=== PATIENT | female | born 1955 | race Caucasian/White ===

== ENCOUNTER → 2018-02-06 | Day surgery (SDC) | payer BC ==
[~2018-02-06] MED LIST: DEXAMETHASONE SOD PHOS INJ 4 MG/ML VIAL ONE; DITROPAN XL5 MG PO; EFFEXOR XR75 MG PO; EPHEDRINE SULFATE INJ 50 MG/10 ML SYR ONE; FENTANYL CITRATE/PF 100MCG/2 ML INJ ONE; IOPAMIDOL 610MG/1ML 300 MG/ML VIAL IV ONE; IOTHALAMATE MEGLUMINE 17.20% 250 ML BTL ONE; LEVOFLOXACIN 500MG/D5W 100ML 100 ML IV ONE; LIDOCAINE HCL 2% LOCAL INJ 5 ML SDV VIAL INJ ONE; MIDAZOLAM HCL 2 MG/2 ML VIAL ONE; ONDANSETRON HCL INJ 2 MG/ML VIAL ONE; PANTOPRAZOLE SO40 MG PO; PROPOFOL IV EMULSION 10 MG/ML 20 ML VIAL ONE; SEVOFLURANE INHAL SOLN 250 ML PEN BTL ONE
--- OUTSIDE RECORDS SUMMARY | 2018-02-06 10:31 | XMS REPORT | Continuity of Care Document ---
Author Author Rufino orlandoann Organization Interface Address Unknown Phone Unavailable Problems Problem Status Onset Date Classification Date Reported Comments Source Z12.31 - ENCNTR SCREEN MAMMOGRAM FOR MA Active 10/31/2017 ADAM Portillo CERVICAL SPONDYLOSIS, HERNIATED DISC ICD Active 03/04/2013 [facility] CERVICAL HERNIATED DISC Active 03/04/2013 [facility] DIZZY/OTHER Active 01/04/2013 [facility] HTN - Hypertension Resolved Problem 01/06/2013 [facility] HTN - Hypertension Resolved Problem 03/23/2013 [facility] CERV SPONDYL W MYELOPATH Active [facility] CERVICAL DISC DISPLACMNT Active [facility] Medications Medication Details Route Status Patient Instructions Ordering Provider Order Date Source Fioricet oral tablet 2 tab, Route: PO, Drug Form: TAB, Dosing Weight 63.636, kg, Q4H, PRN Headache, Start date: 03/21/13 10:59:00, Duration: 30 day, Stop date: 04/20/13 10:58:00([id number] 325-50-40mg) Do not exceed 4 gm/day of acetaminophen. (Same as: Esgic, Fioricet) Inactive Daniel 03/21/2013 [facility] vancomycin (SCIP) 1 gm, Route: IVPB, Drug form: INJ, ONCE, Dosing Weight 63.636, kg, Start date: 03/20/13 21:00:00, Stop date: 03/20/13 21:00:00(Same As: Vancocin) Inactive Samy 03/21/2013 [facility] Colace 100 mg oral capsule 100 mg, 1 cap, Route: PO, Drug form: CAP, BID, Dosing Weight 63.636, kg, Start date: 03/20/13 17:00:00, Duration: 30 day, Stop date: 04/19/13 9:00:00(Same as: Colace) (Do Not Crush) No Longer Active Daniel 03/20/2013 [facility] Enablex ER tab 15mg Enablex ER tab 15mg, 1 tab, Drug form: MISC, Route: PO, Daily, 03/20/13 16:00:00, Duration: 30 day, Stop date: 04/19/13 9:00:00 No Longer Active Daniel 03/20/2013 [facility] Cenestin 0.625mg tab Cenestin 0.625mg tab, 1 tab, Drug form: MISC, Route: PO, Daily, 03/20/13 16:00:00, Duration: 30 day, Stop date: 04/19/13 9:00:00 No Longer Active Daniel 03/20/2013 [facility] benzocaine-menthol topical 1 lozenge, Route: MUCOUS MEM, Drug Form: PARAM, Q2H, PRN Sore Throat, Start date: 03/20/13 14:55:00, Duration: 30 day, Stop date: 04/19/13 14:54:00Cepacol lozenges (Same As: Cepacol Lozenges) No Longer Active Daniel 03/20/2013 [facility] Ofirmev 1,000 mg, 100 mL, Route: IV, Drug form: INJ, Q6H, Dosing Weight 63.636, kg, for > or=50 kg, Start date: 03/20/13 12:00:00, Duration: 1 day, Stop date: 03/21/13 6:00:00Infuse over 15 minutes Do not e xceed 4gm/day of acetaminophen Active Daniel 03/20/2013 [facility] dexamethasone 4 mg, 1 mL, Route: IVP, Drug form: INJ, Q6H, Dosing Weight 63.636, kg, Start date: 03/20/13 12:00:00, Duration: 1 day, Stop date: 03/21/13 6:00:00Concentration: 4mg/ml Active Daniel 03/20/2013 [facility] ondansetron 4 mg, 2 mL, Route: IVP, Drug form: INJ, ONCE, Dosing Weight 63.636, kg, PRN Nausea & Vomiting, Start date: 03/20/13 11:44:00(Same as: Zofran) Inactive Vera 03/20/2013 [facility] flumazenil 0.2 mg, 2 mL, Route: IVP, Drug form: INJ, PRN, Dosing Weight 63.636, kg, PRN Benzodiazepine Reversal, Initial dose, Start date: 03/20/13 11:44:00, Duration: 1 day, Stop date: 03/21/13 11:43:00(Same as: Romazicon) Inactive [place] 03/20/2013 [facility] naloxone 0.04 mg, 0.1 mL, Route: IVP, Drug form: INJ, Q2MIN, Dosing Weight 63.636, kg, PRN Narcotic Reversal, Start date: 03/20/13 11:44:00, Duration: 8 doses or times, Stop date: Limited # of times(Same as: Narcan) [facility] labetalol 10 mg, 2 mL, Route: IVP, Drug form: INJ, Q5Min, Dosing Weight 63.636, kg, PRN Elevated BP, Start date: 03/20/13 11:44:00, Duration: 5 doses or times, Stop date: Limited # of times [facility] esmolol IV Push 10 mg, 1 mL, Route: IVP, Drug form: INJ, Q5Min, Dosing Weight 63.636, kg, PRN Other -See Comment, Start date: 03/20/13 11:44:00, Duration: 5 doses or times, Stop date: Limited # of times(Same as: Ana Laura vibloc) Inactive [place] 03/20/2013 [facility] fentanyl 25 microgram, 0.5 mL, Route: IVP, Drug form: INJ, Q5Min, Dosing Weight 63.636, kg, PRN Pain Score 4-6, Start date: 03/20/13 11:44:00, Duration: 4 doses or times, Stop date: Limited # of times(Same as: Sublimaze) Preservative free. [facility] hydromorphone 0.5 mg, 0.25 mL, Route: IVP, Drug form: INJ, Q5Min, Dosing Weight 63.636, kg, PRN Pain Score 7-10, Start date: 03/20/13 11:44:00, Duration: 4 doses or times, Stop date: Limited # of timesSame as: Dil audid Inactive Vera 03/20/2013 [facility] tramadol 50 mg oral tablet 50 mg, 1 tab, Route: PO, Drug form: TAB, Q4H, Dosing Weight 63.636, kg, PRN Pain Score 1-3, Start date: 03/20/13 10:31:00, Duration: 30 day, Stop date: 04/19/13 10:30:00Not to exceed 400mg/day. (Same As: Ultram) No Longer Active [place] 03/20/2013 [facility] normal saline 0.9% IV 1,000 mL 1,000 mL, Rate: 75 ml/hr, Infuse over: 13.3 hr, Route: IV, Dosing Weight 63.636 kg, Total Volume: 1,000, Start date: 03/20/13 10:31:00, Duration: 30 day, Stop date: 04/19/13 10:30:00 No Longer Active [place] 03/20/2013 [facility] Ambien 10 mg, 2 tab, Route: PO, Drug form: TAB, Bedtime, Dosing Weight 63.636, kg, PRN Insomnia, Start date: 03/20/13 10:31:00, Duration: 30 day, Stop date: 04/19/13 10:30:00(Same As: Ambien) No Longer Active [place] 03/20/2013 [facility] Phenergan 12.5 mg, 0.5 mL, Route: IVPB, Drug form: INJ, Q4H, Dosing Weight 63.636, kg, PRN Nausea & Vomiting, Start date: 03/20/13 10:31:00, Duration: 30 day, Stop date: 04/19/13 10:30:00Do not give IV push. (Same as: Phenergan) No Longer Active [place] 03/20/2013 [facility] morphine Sulfate 4 mg, 1 mL, Route: IVP, Drug form: INJ, Q4H, Dosing Weight 63.636, kg, PRN Pain Score 7-10, Start date: 03/20/13 10:31:00, Duration: 30 day, Stop date: 04/19/13 10:30:00(Same as:MORPhine Sulfate) No Longer Active [place] 03/20/2013 [facility] cyclobenzaprine 5 mg, 0.5 tab, Route: PO, Drug form: TAB, TID, Dosing Weight 63.636, kg, PRN Spasm, Start date: 03/20/13 10:31:00, Duration: 30 day, Stop date: 04/19/13 10:30:00(Same As: Flexeril) No Longer Active Daniel 03/20/2013 [facility] Cepacol Lozenge 1 lozenge, Route: MUCOUS MEM, Q2H, Drug form: PARAM, PRN Sore Throat, Start date: 03/20/13 10:31:00, Duration: 30 day, Stop date: 04/19/13 10:30:00 Inactive Daniel 03/20/2013 [facility] vancomycin (SCIP) 1 gm, Route: IVPB, Drug form: INJ, ONCE, Dosing Weight 63.636, kg, Start date: 03/20/13 9:44:00, Stop date: 03/20/13 9:44:00(Same As: Vancocin) Inactive Samy 03/20/2013 [facility] Effexor XR 75 mg, 1 cap, Route: PO, Drug form: ERCAP, Daily, Dosing Weight 63.636, kg, Start date: 03/20/13 9:00:00, Duration: 30 day, Stop date: 04/18/13 9:00:00Do not open, crush, or chew. (Same As: Effexor XR) No Longer Active Daniel 03/20/2013 [facility] Enablex 15 mg, Route: PO, Drug form: ERTAB, Daily, Dosing Weight 63.636, kg, Start date: 03/20/13 9:00:00, Duration: 30 day, Stop date: 04/18/13 9:00:00 Inactive Daniel 03/20/2013 [facility] conjugated estrogens 0.625 mg, 1 tab, Route: PO, Drug form: TAB, Daily, Dosing Weight 63.636, kg, Start date: 03/20/13 9:00:00, Duration: 30 day, Stop date: 04/18/13 9:00:00(Same As: Premarin) Inactive Daniel 03/20/2013 [facility] amLODipine 5 mg, 1 tab, Route: PO, Drug form: TAB, Daily, Dosing Weight 63.636, kg, Start date: 03/20/13 9:00:00, Duration: 30 day, Stop date: 04/18/13 9:00:00(Same as: Norvasc) No Longer Active Daniel 03/20/2013 [facility] vancomycin 1 gm, Route: IVPB, Drug form: INJ, PRE OP, Start date: 03/20/13 5:00:00, Duration: 1 doses or times, Stop date: 03/20/13 22:00:00(Same As: Vancocin) Inactive [place] 03/20/2013 [facility] amoxicillin 500 mg, Daily, for 5 days, 0 Refill(s)for 5 days Active 03/18/2013 [facility] amLODipine 5 mg, PO, Daily, 0 Refill(s) Active Daniel 03/18/2013 [facility] Enablex 15 mg oral tablet, extended release 15 mg=1 tab, PO, Daily, # 30 tab, 0 Refill(s) Active Daniel 03/18/2013 [facility] Effexor XR 75 mg oral capsule, extended release 75 mg=1 cap, PO, Daily, # 30 cap, 0 Refill(s) Active [place] 03/18/2013 [facility] Cenestin 0.625 mg tablet 0.625 mg=1 tab, PO, Daily, # 30 tab, 0 Refill(s) Active [place] 03/18/2013 [facility] hydrochlorothiazide-losartan 12.5 mg-50 mg oral tablet 1 tab, Route: PO, Dosing Weight 63.636, kg, Daily, Start date: 01/05/13 9:00:00, Duration: 30 day, Stop date: 02/03/13 9:00:00 PO No Longer Active [place] 01/05/2013 [facility] Cozaar 50 mg, 1 tab, Route: PO, Drug form: TAB, ONCE, Start date: 01/04/13 16:00:00, Stop date: 01/04/13 16:00:00 PO No Longer Active [place] 01/04/2013 [facility] Microzide 12.5 mg, 1 cap, Route: PO, Drug form: CAP, ONCE, Start date: 01/04/13 16:00:00, Stop date: 01/04/13 16:00:00 PO No Longer Active [place] 01/04/2013 [facility] fosfomycin 3 gm, Route: PO, ONCE, Dosing Weight 63.636, kg, Start date: 01/04/13 15:40:00, Stop date: 01/04/13 15:40:00 PO No Longer Active [place] 01/04/2013 [facility] hydrochlorothiazide-losartan 12.5 mg-50 mg oral tablet 1 tab, Route: PO, Dosing Weight 63.636, kg, ONCE, Start date: 01/04/13 15:21:00, Stop date: 01/04/13 15:21:00 PO No Longer Active [place] 01/04/2013 [facility] [place] 5/325 oral tablet 1 tab, Route: PO, Drug Form: TAB, Dosing Weight 63.636, kg, ONCE, Start date: 01/04/13 14:55:00, Stop date: 01/04/13 14:55:00 PO No Longer Active [place] 01/04/2013 [facility] NS (Bolus) IV 1,000 mL 1,000 mL, Rate: 1,000 ml/hr, Infuse over: 1 hr, Route: IV, Dosing Weight 63.636 kg, Total Volume: 1,000, Priority: STAT, Start date: 01/04/13 14:51:00, Duration: 1 doses or times, Stop date: 01/04/13 15:50:00, Bolus DoseBolus Dose IV No Longer Active [place] 01/04/2013 [facility] Allergies, Adverse Reactions, Alerts Substance Category Reaction Severity Reaction type Status Date Reported Comments Source penicillins drug allergy Allergy [facility] sulfa drugs drug allergy Allergy [facility] Cipro drug allergy Allergy [facility] Immunizations Immunization Date Given Site Status Last Updated Comments Source Results Order Name Results Value Reference Range Date Interpretation Comments Source Breast Mammo Scrn BYRON incl CAD MA Breast Mammo Scrn BYRON incl CAD MA BILATERAL DIGITAL SCREENING MAMMOGRAM WITH CAD: 11/01/2017 CLINICAL: Z12.31/Screening. Current study was evaluated with a Computer Aided Detection (CAD) system. COMPARISON:No prior exams were available for comparison. TECHNIQUE: Mammographic views were obtained using digital acquisition. Current study was also evaluated with a Computer Aided Detection (CAD) system. FINDINGS: There are scattered fibroglandular densities in both breasts. Bilateral retropectoral silicone implants are present. Implants may obscure breast parenchyma, making mammographic interpretation difficult. No significant masses, calcifications, or other findings are seen in either breast. IMPRESSION: BENIGN RECOMMENDATION:There is no mammographic evidence of malignancy. A 1 year screening mammogram is recommended.(11/02/2018) This exam was interpreted at [id number] for [facility]. Gabriela Orta M.D. Additional Observers: Tyson Mayfield hh/penrad:11/07/2017 10:18:20 [employer]codile Farmer(s): Hermelinda Chen [facility] Out[facility] Imaging Department letter sent: BI-RADS 1/2 Mammogram BI-RADS: 2 Benign 11/01/2017 - - Read by: Gabriela Orta MD PHD Dictated Date/time: 11/07/17 10:18 Electronically Signed by: Gabriela Orta MD PHD 11/07/17 10:18 FINAL REPORT [facility] BLOOD BANK RESULTS ABO/Rh O POS 03/20/2013 [facility] BLOOD BANK RESULTS Antibody Scrn Negative (03/20/2013 08:40:00) 03/20/2013 Normal [facility] CHEMISTRY eGFR 98 mL/min/1.73m2 03/18/2013 1Result Comment: The eGFR is calculated using the CKD-EPI formula. In most young, healthy individuals the eGFR will be >90 mL/min/1.73m2. The eGFR declines with age. An eGFR of 60-89 may be normal in some populations, particularly the elderly, for whom the CKD-EPI formula has not been extensively validated. Use of the eGFR is not recommended in the following populations: Individuals with unstable creatinine concentrations, including patients and those with serious co-morbid conditions. Patients with extremes in muscle mass or diet. The data above are obtained from the National Kidney Disease Education Program (NKDEP) which additionally recommends that when the eGFR is used in patients with extremes of body mass index for purposes of drug dosing, the eGFR should be multiplied by the estimated BMI. [facility] CHEMISTRY Chloride Lvl 105 meq/L 95 - 109 03/18/2013 Normal [facility] CHEMISTRY Calcium Lvl 9.4 mg/dL 8.5 - 10.5 03/18/2013 Normal [facility] CHEMISTRY CO2 28 meq/L 24 - 32 03/18/2013 Normal [facility] CHEMISTRY Sodium Lvl 141 meq/L 135 - 145 03/18/2013 Normal [facility] CHEMISTRY Potassium Lvl 4.7 meq/L 3.5 - 5.1 03/18/2013 Normal [facility] CHEMISTRY Creatinine Lvl 0.7 mg/dL 0.5 - 1.4 03/18/2013 Normal [facility] CHEMISTRY Glucose Lvl 98 mg/dL 70 - 99 03/18/2013 Normal 2Interpretive Data: Adult reference range values reflect the clinical guidelines of the [place] [employer]. [facility] CHEMISTRY BUN 16 mg/dL 7 - 22 03/18/2013 Normal [facility] CHEMISTRY AGAP 12.7 meq/L 10.0 - 20.0 03/18/2013 Normal [facility] HEMATOLOGY MCV 91.4 fL 81.0 - 99.0 03/18/2013 Normal [facility] HEMATOLOGY MCH 31.7 pg 27.0 - 31.0 03/18/2013 HI [facility] HEMATOLOGY MCHC 34.7 g/dL 32.0 - 36.0 03/18/2013 Normal [facility] HEMATOLOGY Hgb 13.2 g/dL 12.0 - 16.0 03/18/2013 Normal [facility] HEMATOLOGY RDW 13.1 % 11.5 - 14.5 03/18/2013 Normal [facility] HEMATOLOGY Platelet 269 K/CMM 133 - 450 03/18/2013 Normal [facility] HEMATOLOGY MPV 8.8 fL 7.4 - 10.4 03/18/2013 Normal [facility] HEMATOLOGY Hct 37.9 % 36.0 - 48.0 03/18/2013 Normal [facility] HEMATOLOGY WBC X 10x3 6.5 K/CMM 3.7 - 10.4 03/18/2013 Normal [facility] HEMATOLOGY RBC X 10x6 4.15 M/CMM 4.20 - 5.40 03/18/2013 LOW [facility] HEMATOLOGY PROTIME 12.0 s 12.0 - 14.7 03/18/2013 Normal [facility] HEMATOLOGY aPTT 33.3 s 22.9 - 35.8 03/18/2013 Normal 4Interpretive Data: Heparin Therapeutic Range: 57 - 92 Seconds [facility] HEMATOLOGY INR 0.89 0.85 - 1.17 03/18/2013 Normal 3Interpretive Data: RECOMMENDED RANGES FOR PROTIME INR: 2.0-3.0 for most medical and surgical thromboembolic states. 2.5-3.5 for artificial heart valves and recurrent embolism. INR SHOULD BE USED ONLY FOR PATIENTS ON STABLE ANTICOAGULANT THERAPY. [facility] HEMATOLOGY Monocytes # 0.4 K/CMM 0.0 - 0.8 03/18/2013 Normal [facility] HEMATOLOGY Eosinophils # 0.2 K/CMM 0.0 - 0.5 03/18/2013 Normal [facility] HEMATOLOGY Lymphocytes 23.7 % 20.0 - 40.0 03/18/2013 Normal [facility] HEMATOLOGY Segs 68.2 % 45.0 - 75.0 03/18/2013 Normal [facility] HEMATOLOGY Monocytes 5.4 % 2.0 - 12.0 03/18/2013 Normal [facility] HEMATOLOGY Segs-Bands # 4.4 K/CMM 1.5 - 8.1 03/18/2013 Normal [facility] HEMATOLOGY Lymphocytes # 1.5 K/CMM 1.0 - 5.5 03/18/2013 Normal [facility] HEMATOLOGY Eosinophils 2.4 % 0.0 - 4.0 03/18/2013 Normal [facility] HEMATOLOGY Basophils 0.3 % 0.0 - 1.0 03/18/2013 Normal [facility] CHEMISTRY eGFR 72 mL/min/1.73m2 01/04/2013 NA 1Result Comment: The eGFR is calculated using the CKD-EPI formula. In most young, healthy individuals the eGFR will be >90 mL/min/1.73m2. The eGFR declines with age. An eGFR of 60-89 may be normal in some populations, particularly the elderly, for whom the CKD-EPI formula has not been extensively validated. Use of the eGFR is not recommended in the following populations: Individuals with unstable creatinine concentrations, including patients and those with serious co-morbid conditions. Patients with extremes in muscle mass or diet. The data above are obtained from the National Kidney Disease Education Program (NKDEP) which additionally recommends that when the eGFR is used in patients with extremes of body mass index for purposes of drug dosing, the eGFR should be multiplied by the estimated BMI. [facility] CHEMISTRY Calcium Lvl 9.6 mg/dL 8.5 - 10.5 01/04/2013 Normal [facility] CHEMISTRY CO2 28 meq/L 24 - 32 01/04/2013 Normal [facility] CHEMISTRY Chloride Lvl 105 meq/L 95 - 109 01/04/2013 Normal [facility] CHEMISTRY Potassium Lvl 4.0 meq/L 3.5 - 5.1 01/04/2013 Normal [facility] CHEMISTRY Sodium Lvl 141 meq/L 135 - 145 01/04/2013 Normal [facility] CHEMISTRY Creatinine Lvl 0.9 mg/dL 0.5 - 1.4 01/04/2013 Normal [facility] CHEMISTRY BUN 19 mg/dL 7 - 22 01/04/2013 Normal [facility] CHEMISTRY Glucose Lvl 101 mg/dL 70 - 99 01/04/2013 [place] 2Interpretive Data: Adult reference range values reflect the clinical guidelines of the [place] [employer]. [facility] CHEMISTRY Albumin Lvl 3.9 g/dL 3.5 - 5.0 01/04/2013 Normal [facility] CHEMISTRY Total Protein 7.5 g/dL 6.4 - 8.4 01/04/2013 Normal [facility] CHEMISTRY AST 25 unit/L 0 - 37 01/04/2013 Normal [facility] CHEMISTRY Bili Total 0.3 mg/dL 0.2 - 1.3 01/04/2013 Normal [facility] CHEMISTRY Alk Phos 164 unit/L 39 - 136 01/04/2013 HI [facility] CHEMISTRY ALT 39 unit/L 0 - 65 01/04/2013 Normal [facility] CHEMISTRY AGAP 12.0 meq/L 10.0 - 20.0 01/04/2013 Normal [facility] CHEMISTRY B/C Ratio 21 6 - 25 01/04/2013 Normal [facility] CHEMISTRY A/G Ratio 1.1 0.7 - 1.6 01/04/2013 Normal [facility] CHEMISTRY Globulin 3.6 g/dL 2.0 - 4.0 01/04/2013 Normal [facility] URINALYSIS UA Bacteria Many /HPF (01/04/2013 14:50:40) None Seen 01/04/2013 Normal [facility] URINALYSIS UA WBC >100 /HPF *ABN* (01/04/2013 14:50:40) None Seen 01/04/2013 ABN [facility] URINALYSIS UA RBC 3-5 /HPF *ABN* (01/04/2013 14:50:40) 0 - 2 01/04/2013 ABN [facility] URINALYSIS UA Turbidity Cloudy *ABN* (01/04/2013 14:50:40) Clear 01/04/2013 ABN [facility] URINALYSIS UA Color Bessy *ABN* (01/04/2013 14:50:40) Yellow 01/04/2013 ABN [facility] URINALYSIS UA Spec Grav 1.015 <=1.030 01/04/2013 Normal [facility] URINALYSIS UA Protein Trace *ABN* (01/04/2013 14:50:40) Negative 01/04/2013 ABN [facility] URINALYSIS UA pH 6.0 5.0 - 8.0 01/04/2013 Normal [facility] URINALYSIS UA Nitrite Positive *ABN* (01/04/2013 14:50:40) Negative 01/04/2013 ABN [facility] URINALYSIS UA Ketones Negative *NA* (01/04/2013 14:50:40) Negative 01/04/2013 NA [facility] URINALYSIS UA Bili Negative *NA* (01/04/2013 14:50:40) Negative 01/04/2013 NA [facility] URINALYSIS UA Blood Small *ABN* (01/04/2013 14:50:40) Negative 01/04/2013 ABN [facility] URINALYSIS UA Urobilinogen 0.2 EU/dL 0.1 - 1.0 01/04/2013 Normal [facility] URINALYSIS UA Sq Epi Few /LPF (01/04/2013 14:50:40) Few 01/04/2013 Normal [facility] URINALYSIS UA Leuk Est Small *ABN* (01/04/2013 14:50:40) Negative 01/04/2013 ABN [facility] URINALYSIS UA Glucose Negative (01/04/2013 14:50:40) Negative 01/04/2013 Normal [facility] HEMATOLOGY Eosinophils # 0.1 K/CMM 0.0 - 0.5 01/04/2013 Normal [facility] HEMATOLOGY Basophils # 0.0 K/CMM 0.0 - 0.2 01/04/2013 Normal [facility] HEMATOLOGY Segs 83.8 % 45.0 - 75.0 01/04/2013 HI [facility] HEMATOLOGY Plt Morph Normal (01/04/2013 14:50:39) 01/04/2013 Normal [facility] HEMATOLOGY Eosinophils 0.7 % 0.0 - 4.0 01/04/2013 Normal [facility] HEMATOLOGY Monocytes 3.0 % 2.0 - 12.0 01/04/2013 Normal [facility] HEMATOLOGY RBC Morph Normal (01/04/2013 14:50:39) 01/04/2013 Normal [facility] HEMATOLOGY Lymphocytes 12.4 % 20.0 - 40.0 01/04/2013 LOW [facility] HEMATOLOGY Segs-Bands # 9.7 K/CMM 1.5 - 8.1 01/04/2013 HI [facility] HEMATOLOGY Monocytes # 0.3 K/CMM 0.0 - 0.8 01/04/2013 Normal [facility] HEMATOLOGY Basophils 0.1 % 0.0 - 1.0 01/04/2013 Normal [facility] HEMATOLOGY Lymphocytes # 1.4 K/CMM 1.0 - 5.5 01/04/2013 Normal [facility] HEMATOLOGY MCH 30.3 pg 27.0 - 31.0 01/04/2013 Normal [facility] HEMATOLOGY Platelet 238 K/CMM 133 - 450 01/04/2013 Normal [facility] HEMATOLOGY MPV 9.1 fL 7.4 - 10.4 01/04/2013 Normal [facility] HEMATOLOGY RDW 12.4 % 11.5 - 14.5 01/04/2013 Normal [facility] HEMATOLOGY MCHC 32.9 g/dL 32.0 - 36.0 01/04/2013 Normal [facility] HEMATOLOGY Hct 39.6 % 36.0 - 48.0 01/04/2013 Normal [facility] HEMATOLOGY MCV 91.9 fL 81.0 - 99.0 01/04/2013 Normal [facility] HEMATOLOGY Hgb 13.0 g/dL 12.0 - 16.0 01/04/2013 Normal [facility] HEMATOLOGY RBC 4.30 M/CMM 4.20 - 5.40 01/04/2013 Normal [facility] HEMATOLOGY WBC 11.5 K/CMM 3.7 - 10.4 01/04/2013 [facility] Microbiology Culture: Urine 01/04/2013 [facility] Vital Signs Vital Sign Value Date Comments Source Diastolic (mm Hg) 77 03/21/2013 [facility] Temperature Oral (F) 97.8 F 03/21/2013 [facility] Heart Rate 76 03/21/2013 [facility] Respitory Rate 18 03/21/2013 [facility] Systolic (mm Hg) 118 03/21/2013 [facility] Diastolic (mm Hg) 77 03/21/2013 [facility] Heart Rate 92 03/21/2013 [facility] Systolic (mm Hg) 134 03/21/2013 [facility] Respitory Rate 18 03/21/2013 [facility] Temperature Oral (F) 98.4 F 03/21/2013 [facility] Heart Rate 92 03/21/2013 [facility] Temperature Oral (F) 98.4 F 03/21/2013 [facility] Respitory Rate 17 03/21/2013 [facility] Diastolic (mm Hg) 80 03/21/2013 [facility] Systolic (mm Hg) 149 03/21/2013 [facility] Weight 63.636 03/20/2013 [facility] Height 165.1 cm 03/20/2013 [facility] Height 165.1 cm 03/18/2013 [facility] Weight 63.636 03/18/2013 [facility] Respitory Rate 16 01/04/2013 [facility] Temperature Oral (F) 98.0 F 01/04/2013 [facility] Heart Rate 70 01/04/2013 [facility] Systolic (mm Hg) 164 01/04/2013 [facility] Diastolic (mm Hg) 79 01/04/2013 [facility] Systolic (mm Hg) 181 01/04/2013 [facility] Heart Rate 70 01/04/2013 [facility] Respitory Rate 16 01/04/2013 [facility] Diastolic (mm Hg) 74 01/04/2013 [facility] Weight 63.636 01/04/2013 [facility] Respitory Rate 20 01/04/2013 [facility] Temperature Oral (F) 98.3 F 01/04/2013 [facility] Systolic (mm Hg) 182 01/04/2013 [facility] Heart Rate 67 01/04/2013 [facility] Diastolic (mm Hg) 78 01/04/2013 [facility] Height 165.1 cm 01/04/2013 [facility] Encounters Location Location Details Encounter Type Encounter Number Reason For Visit Attending Provider ADM Date DC Date Status Source [facility] [id number] [place]MBERLY LESLIE 01/04/2013 01/04/2013 Active [facility] Inpatient [id number] PARUL FATIMA 03/20/2013 03/21/2013 Active [facility] Procedures Procedure Code Date Perfomer Comments Source Hysterectomy [id number] 03/18/1991 [facility]
--- OUTSIDE RECORDS SUMMARY | 2018-02-06 10:32 | XMS REPORT | CCD ---
Author Author Auto Generated Organization [facility] Address Unknown Phone Unavailable Care Team Providers Care [employer] Name Role Phone Pavan Bernstein CP Allergies, Adverse Reactions, Alerts Substance Reaction Status penicillins Active sulfa drugs Active Problem List Condition Effective Dates Status HTN - Hypertension Resolved Medications Medication Instructions Start Date End Date Status [place] 5/325 oral 1 tab, Route: PO, Drug Form: TAB, 01/04/2013 01/04/2013 Completed tablet Dosing Weight 63.636, kg, ONCE, Start date: 01/04/13 14:55:00, Stop date: 01/04/13 14:55:00 Cozaar 50 mg, 1 tab, Route: PO, Drug form: 01/04/2013 01/04/2013 Canceled TAB, ONCE, Start date: 01/04/13 16:00:00, Stop date: 01/04/13 16:00:00 NS (Bolus) IV 1,000 1,000 mL, Rate: 1,000 ml/hr, Infuse 01/04/2013 01/04/2013 Completed mL over: 1 hr, Route: IV, Dosing Weight 63.636 kg, Total Volume: 1,000, Priority: STAT, Start date: 01/04/13 14:51:00, Duration: 1 doses or times, Stop date: 01/04/13 15:50:00, Bolus Dose Bolus Dose hydrochlorothiazide- 1 tab, Route: PO, Dosing Weight 01/04/2013 01/04/2013 Deleted losartan 12.5 mg-50 63.636, kg, ONCE, Start date: mg oral tablet 01/04/13 15:21:00, Stop date: 01/04/13 15:21:00 Microzide 12.5 mg, 1 cap, Route: PO, Drug 01/04/2013 01/04/2013 Canceled form: CAP, ONCE, Start date: 01/04/13 16:00:00, Stop date: 01/04/13 16:00:00 hydrochlorothiazide- 1 tab, Route: PO, Dosing Weight 01/05/2013 01/04/2013 Canceled losartan 12.5 mg-50 63.636, kg, Daily, Start date: mg oral tablet 01/05/13 9:00:00, Duration: 30 day, Stop date: 02/03/13 9:00:00 fosfomycin 3 gm, Route: PO, ONCE, Dosing 01/04/2013 01/04/2013 Completed Weight 63.636, kg, Start date: 01/04/13 15:40:00, Stop date: 01/04/13 15:40:00 Vital Signs Most recent to oldest [Reference Range]: 1 2 3 Height 165.1 cm (01/04/2013 13:18:00) Temperature Oral [96.4-99.1 DegF] 98.0 DegF (01/04/2013 16:10:00) 98.3 DegF (01/04/2013 13:18:00) Systolic Blood Pressure [90-140 mmHg] 164 mmHg *HI* (01/04/2013 16:10:00) 181 mmHg *HI* (01/04/2013 14:53:00) 182 mmHg *HI* (01/04/2013 13:18:00) Diastolic Blood Pressure [60-90 mmHg] 79 mmHg (01/04/2013 16:10:00) 74 mmHg (01/04/2013 14:53:00) 78 mmHg (01/04/2013 13:18:00) Respiratory Rate [14-20 BRMIN] 16 BRMIN (01/04/2013 16:10:00) 16 BRMIN (01/04/2013 14:53:00) 20 BRMIN (01/04/2013 13:18:00) Peripheral Pulse Rate [60-100 bpm] 70 bpm (01/04/2013 16:10:00) 70 bpm (01/04/2013 14:53:00) 67 bpm (01/04/2013 13:18:00) Weight 63.636 kg (01/04/2013 13:18:00) Results URINALYSIS Most recent to oldest [Reference Range]: 1 UA Turbidity [Clear] Cloudy *ABN* (01/04/2013 14:50:40) UA Color [Yellow] Bessy *ABN* (01/04/2013 14:50:40) UA pH [5.0-8.0] 6.0 (01/04/2013 14:50:40) UA Spec Grav [<=1.030] 1.015 (01/04/2013 14:50:40) UA Glucose [Negative] Negative (01/04/2013 14:50:40) UA Blood [Negative] Small *ABN* (01/04/2013 14:50:40) UA Ketones [Negative] Negative *NA* (01/04/2013 14:50:40) UA Protein [Negative] Trace *ABN* (01/04/2013 14:50:40) UA Urobilinogen [0.1-1.0 EU/dL] 0.2 EU/dL (01/04/2013 14:50:40) UA Bili [Negative] Negative *NA* (01/04/2013 14:50:40) UA Leuk Est [Negative] Small *ABN* (01/04/2013 14:50:40) UA Nitrite [Negative] Positive *ABN* (01/04/2013 14:50:40) UA WBC [None Seen /HPF] >100 /HPF *ABN* (01/04/2013 14:50:40) UA RBC [0-2 /HPF] 3-5 /HPF *ABN* (01/04/2013 14:50:40) UA Bacteria [None Seen /HPF] Many /HPF (01/04/2013 14:50:40) UA Sq Epi [Few /LPF] Few /LPF (01/04/2013 14:50:40) CHEMISTRY Most recent to oldest [Reference Range]: 1 Sodium Lvl [135-145 mEq/L] 141 mEq/L (01/04/2013 14:50:44) Potassium Lvl [3.5-5.1 mEq/L] 4.0 mEq/L (01/04/2013 14:50:44) Chloride Lvl [95-109 mEq/L] 105 mEq/L (01/04/2013 14:50:44) CO2 [24-32 mEq/L] 28 mEq/L (01/04/2013 14:50:44) AGAP [10.0-20.0 mEq/L] 12.0 mEq/L (01/04/2013 14:50:44) Creatinine Lvl [0.5-1.4 mg/dL] 0.9 mg/dL (01/04/2013 14:50:44) eGFR 72 mL/min/1.73m2 1 *NA* (01/04/2013 14:50:44) BUN [7-22 mg/dL] 19 mg/dL (01/04/2013 14:50:44) B/C Ratio [6-25] 21 (01/04/2013 14:50:44) Glucose Lvl [70-99 mg/dL] 101 mg/dL 2 *HI* (01/04/2013 14:50:44) Total Protein [6.4-8.4 g/dL] 7.5 g/dL (01/04/2013 14:50:44) Albumin Lvl [3.5-5.0 g/dL] 3.9 g/dL (01/04/2013 14:50:44) Globulin [2.0-4.0 g/dL] 3.6 g/dL (01/04/2013 14:50:44) A/G Ratio [0.7-1.6] 1.1 (01/04/2013 14:50:44) Calcium Lvl [8.5-10.5 mg/dL] 9.6 mg/dL (01/04/2013 14:50:44) ALT [0-65 unit/L] 39 unit/L (01/04/2013 14:50:44) AST [0-37 unit/L] 25 unit/L (01/04/2013 14:50:44) Alk Phos [39-136 unit/L] 164 unit/L *HI* (01/04/2013 14:50:44) Bili Total [0.2-1.3 mg/dL] 0.3 mg/dL (01/04/2013 14:50:44) 1Result Comment: The eGFR is calculated using [...] from the National Kidney Disease Education Program ( NKDEP) which additionally recommends that when the eGFR is used in patients with extremes of body mass index for purposes of drug dosing, the eGFR should be mul tiplied by the estimated BMI. 2Interpretive Data: Adult reference range values reflect the clinical guidelines of the [place] [employer]. HEMATOLOGY Most recent to oldest [Reference Range]: 1 WBC [3.7-10.4 K/CMM] 11.5 K/CMM *HI* (01/04/2013 14:50:39) RBC [4.20-5.40 M/CMM] 4.30 M/CMM (01/04/2013 14:50:39) Hgb [12.0-16.0 g/dL] 13.0 g/dL (01/04/2013 14:50:39) Hct [36.0-48.0 %] 39.6 % (01/04/2013 14:50:39) MCV [81.0-99.0 fL] 91.9 fL (01/04/2013 14:50:39) MCH [27.0-31.0 pg] 30.3 pg (01/04/2013 14:50:39) MCHC [32.0-36.0 g/dL] 32.9 g/dL (01/04/2013 14:50:39) RDW [11.5-14.5 %] 12.4 % (01/04/2013 14:50:39) Platelet [133-450 K/CMM] 238 K/CMM (01/04/2013 14:50:39) MPV [7.4-10.4 fL] 9.1 fL (01/04/2013 14:50:39) Segs [45.0-75.0 %] 83.8 % *HI* (01/04/2013 14:50:39) Lymphocytes [20.0-40.0 %] 12.4 % *LOW* (01/04/2013 14:50:39) Monocytes [2.0-12.0 %] 3.0 % (01/04/2013 14:50:39) Eosinophils [0.0-4.0 %] 0.7 % (01/04/2013 14:50:39) Basophils [0.0-1.0 %] 0.1 % (01/04/2013 14:50:39) Segs-Bands # [1.5-8.1 K/CMM] 9.7 K/CMM *HI* (01/04/2013 14:50:39) Lymphocytes # [1.0-5.5 K/CMM] 1.4 K/CMM (01/04/2013 14:50:39) Monocytes # [0.0-0.8 K/CMM] 0.3 K/CMM (01/04/2013 14:50:39) Eosinophils # [0.0-0.5 K/CMM] 0.1 K/CMM (01/04/2013 14:50:39) Basophils # [0.0-0.2 K/CMM] 0.0 K/CMM (01/04/2013 14:50:39) RBC Morph Normal (01/04/2013 14:50:39) Plt Morph Normal (01/04/2013 14:50:39) Microbiology Reports PROCEDURE:Culture: Urine STATUS: Auth (Verified) BODY SITE: COLLECTED DATE/TIME: 01/04/2013 14:50:23 SOURCE: Urine, Clean Catch FREE TEXT SOURCE: FINAL REPORTS Final Report >100,000 CFU/mL Escherichia coli SUSCEPTIBILITY REPORT EC Antibiotic INTERP. VDIL Amikacin S Ampicillin R Ampicillin/Sulbactam S Cefazolin S Cefepime S Ceftriaxone S Cefuroxime S ESBL Confirmation - Gentamicin S Levofloxacin S Meropenem S Nitrofurantoin S Piperacillin/Tazobactam S Tetracycline S Tobramycin S Trimethoprim/Sulfamethoxazole S
--- OUTSIDE RECORDS SUMMARY | 2018-02-06 10:32 | XMS REPORT | CCD ---
Author Author Auto Generated Organization [facility] Address Unknown Phone Unavailable Care Team Providers Care [employer] Name Role Phone Antolin Mccollum RP Allergies, Adverse Reactions, Alerts Substance Reaction Status Cipro Active penicillins Active sulfa drugs Active Problem List Condition Effective Dates Status HTN - Hypertension Resolved Medications Medication Instructions Start Date End Date Status Fioricet oral tablet 2 tab, Route: PO, Drug Form: TAB, 03/21/2013 03/21/2013 Discontinued Dosing Weight 63.636, kg, Q4H, PRN Headache, Start date: 03/21/13 10:59:00, Duration: 30 day, Stop date: 04/20/13 10:58:00([id number] affeine 325-50-40mg) Do not exceed 4 gm/day of acetaminophen. (Same as: Esgic, Fioricet) Fioricet oral tablet 1 tab, Route: PO, Drug Form: TAB, 03/21/2013 03/21/2013 Discontinued Dosing Weight 63.636, kg, Q4H, PRN Headache, Start date: 03/21/13 10:59:00, Duration: 30 day, Stop date: 04/20/13 10:58:00 tramadol 50 mg oral 50 mg, 1 tab, Route: PO, Drug form: 03/20/2013 03/21/2013 Discontinued tablet TAB, Q4H, Dosing Weight 63.636, kg, PRN Pain Score 1-3, Start date: 03/20/13 10:31:00, Duration: 30 day, Stop date: 04/19/13 10:30:00Not to exceed 400mg/day. (Same As: Ultram) tramadol 50 mg oral 100 mg, 2 tab, Route: PO, Drug 03/20/2013 03/21/2013 Discontinued tablet form: TAB, Q4H, Dosing Weight 63.636, kg, PRN Pain Score 4-6, Start date: 03/20/13 10:31:00, Duration: 30 day, Stop date: 04/19/13 10:30:00Not to exceed 400mg/day. (Same As: Ultram) Ofirmev 1,000 mg, 100 mL, Route: IV, Drug 03/20/2013 03/21/2013 Pending form: INJ, Q6H, Dosing Weight Complete 63.636, kg, for > or=50 kg, Start date: 03/20/13 12:00:00, Duration: 1 day, Stop date: 03/21/13 6:00:00Infuse over 15 minutes Do not exceed 4gm/day of acetaminophen amoxicillin 500 mg, Daily, for 5 days, 0 03/18/2013 Ordered Refill(s) for 5 days Effexor XR 75 mg, 1 cap, Route: PO, Drug form: 03/20/2013 03/21/2013 Discontinued ERCAP, Daily, Dosing Weight 63.636, kg, Start date: 03/20/13 9:00:00, Duration: 30 day, Stop date: 04/18/13 9:00:00Do not open, crush, or chew.(Same As: Effexor XR) Enablex 15 mg, Route: PO, Drug form: ERTAB, 03/20/2013 03/20/2013 Deleted Daily, Dosing Weight 63.636, kg, Start date: 03/20/13 9:00:00, Duration: 30 day, Stop date: 04/18/13 9:00:00 conjugated estrogens 0.625 mg, 1 tab, Route: PO, Drug 03/20/2013 03/20/2013 Deleted form: TAB, Daily, Dosing Weight 63.636, kg, Start date: 03/20/13 9:00:00, Duration: 30 day, Stop date: 04/18/13 9:00:00(Same As: Premarin) Enablex ER tab 15mg Enablex ER tab 15mg, 1 tab, Drug 03/20/2013 03/21/2013 Discontinued form: MISC, Route: PO, Daily, 03/20/13 16:00:00, Duration: 30 day, Stop date: 04/19/13 9:00:00 amLODipine 5 mg, PO, Daily, 0 Refill(s) 03/18/2013 Ordered amLODipine 5 mg, 1 tab, Route: PO, Drug form: 03/20/2013 03/21/2013 Discontinued TAB, Daily, Dosing Weight 63.636, kg, Start date: 03/20/13 9:00:00, Duration: 30 day, Stop date: 04/18/13 9:00:00(Same as: Norvasc) Enablex 15 mg oral 15 mg=1 tab, PO, Daily, # 30 tab, 0 03/18/2013 Ordered tablet, extended Refill(s) release Effexor XR 75 mg 75 mg=1 cap, PO, Daily, # 30 cap, 0 03/18/2013 Ordered oral capsule, Refill(s) extended release vancomycin (SCIP) 1 gm, Route: IVPB, Drug form: INJ, 03/20/2013 03/20/2013 Completed ONCE, Dosing Weight 63.636, kg, Start date: 03/20/13 21:00:00, Stop date: 03/20/13 21:00:00(Same As: Vancocin) Cenestin 0.625mg tab Cenestin 0.625mg tab, 1 tab, Drug 03/20/2013 03/21/2013 Discontinued form: MISC, Route: PO, Daily, 03/20/13 16:00:00, Duration: 30 day, Stop date: 04/19/13 9:00:00 Cenestin 0.625 mg 0.625 mg=1 tab, PO, Daily, # 30 03/18/2013 Ordered tablet tab, 0 Refill(s) normal saline 0.9% 1,000 mL, Rate: 75 ml/hr, Infuse 03/20/2013 03/21/2013 Discontinued IV 1,000 mL over: 13.3 hr, Route: IV, Dosing Weight 63.636 kg, Total Volume: 1,000, Start date: 03/20/13 10:31:00, Duration: 30 day, Stop date: 04/19/13 10:30:00 Ambien 10 mg, 2 tab, Route: PO, Drug form: 03/20/2013 03/21/2013 Discontinued TAB, Bedtime, Dosing Weight 63.636, kg, PRN Insomnia, Start date: 03/20/13 10:31:00, Duration: 30 day, Stop date: 04/19/13 10:30:00(Same As: Ambien) Phenergan 12.5 mg, 0.5 mL, Route: IVPB, Drug 03/20/2013 03/21/2013 Discontinued form: INJ, Q4H, Dosing Weight 63.636, kg, PRN Nausea & Vomiting, Start date: 03/20/13 10:31:00, Duration: 30 day, Stop date: 04/19/13 10:30:00Do not give IV push. (Same as: Phenergan) morphine Sulfate 4 mg, 1 mL, Route: IVP, Drug form: 03/20/2013 03/21/2013 Discontinued INJ, Q4H, Dosing Weight 63.636, kg, PRN Pain Score 7-10, Start date: 03/20/13 10:31:00, Duration: 30 day, Stop date: 04/19/13 10:30:00(Same as:MORPhine Sulfate) morphine Sulfate 2 mg, 1 mL, Route: IVP, Drug form: 03/20/2013 03/21/2013 Discontinued INJ, Q4H, Dosing Weight 63.636, kg, PRN Pain Score 4-6, Start date: 03/20/13 10:31:00, Duration: 30 day, Stop date: 04/19/13 10:30:00(Same as:MORPhine Sulfate) cyclobenzaprine 5 mg, 0.5 tab, Route: PO, Drug 03/20/2013 03/21/2013 Discontinued form: TAB, TID, Dosing Weight 63.636, kg, PRN Spasm, Start date: 03/20/13 10:31:00, Duration: 30 day, Stop date: 04/19/13 10:30:00(Same As: Flexeril) Colace 100 mg oral 100 mg, 1 cap, Route: PO, Drug 03/20/2013 03/21/2013 Discontinued capsule form: CAP, BID, Dosing Weight 63.636, kg, Start date: 03/20/13 17:00:00, Duration: 30 day, Stop date: 04/19/13 9:00:00(Same as: Colace) (Do Not Crush) Cepacol Lozenge 1 lozenge, Route: MUCOUS MEM, Q2H, 03/20/2013 03/20/2013 Deleted Drug form: PARAM, PRN Sore Throat, Start date: 03/20/13 10:31:00, Duration: 30 day, Stop date: 04/19/13 10:30:00 dexamethasone 4 mg, 1 mL, Route: IVP, Drug form: 03/20/2013 03/21/2013 Pending INJ, Q6H, Dosing Weight 63.636, kg, Complete Start date: 03/20/13 12:00:00, Duration: 1 day, Stop date: 03/21/13 6:00:00Concentration: 4mg/ml benzocaine-menthol 1 lozenge, Route: MUCOUS MEM, Drug 03/20/2013 03/21/2013 Discontinued topical Form: PARAM, Q2H, PRN Sore Throat, Start date: 03/20/13 14:55:00, Duration: 30 day, Stop date: 04/19/13 14:54:00Cepacol lozenges (Same As: Cepacol Lozenges) vancomycin 1 gm, Route: IVPB, Drug form: INJ, 03/20/2013 03/20/2013 Completed PRE OP, Start date: 03/20/13 5:00:00, Duration: 1 doses or times, Stop date: 03/20/13 22:00:00(Same As: Vancocin) ondansetron 4 mg, 2 mL, Route: IVP, Drug form: 03/20/2013 03/20/2013 Discontinued INJ, ONCE, Dosing Weight 63.636, kg, PRN Nausea & Vomiting, Start date: 03/20/13 11:44:00(Same as: Zofran) flumazenil 0.2 mg, 2 mL, Route: IVP, Drug 03/20/2013 03/20/2013 Discontinued form: INJ, PRN, Dosing Weight 63.636, kg, PRN Benzodiazepine Reversal, Initial dose, Start date: 03/20/13 11:44:00, Duration: 1 day, Stop date: 03/21/13 11:43:00(Same as: Romazicon) naloxone 0.04 mg, 0.1 mL, Route: IVP, Drug 03/20/2013 03/20/2013 Discontinued form: INJ, Q2MIN, Dosing Weight 63.636, kg, PRN Narcotic Reversal, Start date: 03/20/13 11:44:00, Duration: 8 doses or times, Stop date: Limited # of times(Same as: Narcan) labetalol 10 mg, 2 mL, Route: IVP, Drug form: 03/20/2013 03/20/2013 Discontinued INJ, Q5Min, Dosing Weight 63.636, kg, PRN Elevated BP, Start date: 03/20/13 11:44:00, Duration: 5 doses or times, Stop date: Limited # of times esmolol IV Push 10 mg, 1 mL, Route: IVP, Drug form: 03/20/2013 03/20/2013 Discontinued INJ, Q5Min, Dosing Weight 63.636, kg, PRN Other -See Comment, Start date: 03/20/13 11:44:00, Duration: 5 doses or times, Stop date: Limited # of times(Same as: Brevibloc) fentanyl 25 microgram, 0.5 mL, Route: IVP, 03/20/2013 03/20/2013 Discontinued Drug form: INJ, Q5Min, Dosing Weight 63.636, kg, PRN Pain Score 4-6, Start date: 03/20/13 11:44:00, Duration: 4 doses or times, Stop date: Limited # of times(Same as: Sublimaze) Preservative free. hydromorphone 0.5 mg, 0.25 mL, Route: IVP, Drug 03/20/2013 03/20/2013 Completed form: INJ, Q5Min, Dosing Weight 63.636, kg, PRN Pain Score 7-10, Start date: 03/20/13 11:44:00, Duration: 4 doses or times, Stop date: Limited # of timesSame as: Dilaudid vancomycin (SCIP) 1 gm, Route: IVPB, Drug form: INJ, 03/20/2013 03/20/2013 Deleted ONCE, Dosing Weight 63.636, kg, Start date: 03/20/13 9:44:00, Stop date: 03/20/13 9:44:00(Same As: Vancocin) Vital Signs Most recent to oldest [Reference Range]: 1 2 3 Height 165.1 cm (03/20/2013 14:58:00) 165.1 cm (03/18/2013 15:47:00) Temperature Oral [96.4-99.1 DegF] 97.8 DegF (03/21/2013 15:15:00) 98.4 DegF (03/21/2013 12:26:00) 98.4 DegF (03/21/2013 07:31:00) Systolic Blood Pressure [90-140 mmHg] 118 mmHg (03/21/2013 15:15:00) 134 mmHg (03/21/2013 12:26:00) 149 mmHg *HI* (03/21/2013 07:31:00) Diastolic Blood Pressure [60-90 mmHg] 77 mmHg (03/21/2013 15:15:00) 77 mmHg (03/21/2013 12:26:00) 80 mmHg (03/21/2013 07:31:00) Respiratory Rate [14-20 BRMIN] 18 BRMIN (03/21/2013 15:15:00) 18 BRMIN (03/21/2013 12:26:00) 17 BRMIN (03/21/2013 07:31:00) Peripheral Pulse Rate [60-100 bpm] 76 bpm (03/21/2013 15:15:00) 92 bpm (03/21/2013 12:26:00) 92 bpm (03/21/2013 07:31:00) Weight 63.636 kg (03/20/2013 14:58:00) 63.636 kg (03/18/2013 15:47:00) Results BLOOD BANK RESULTS Most recent to oldest [Reference Range]: 1 ABO/Rh O POS *Unknown* (03/20/2013 08:40:00) Antibody Scrn Negative (03/20/2013 08:40:00) CHEMISTRY Most recent to oldest [Reference Range]: 1 Sodium Lvl [135-145 mEq/L] 141 mEq/L (03/18/2013 11:30:00) Potassium Lvl [3.5-5.1 mEq/L] 4.7 mEq/L (03/18/2013 11:30:00) Chloride Lvl [95-109 mEq/L] 105 mEq/L (03/18/2013 11:30:00) CO2 [24-32 mEq/L] 28 mEq/L (03/18/2013 11:30:00) AGAP [10.0-20.0 mEq/L] 12.7 mEq/L (03/18/2013:30:00) Creatinine Lvl [0.5-1.4 mg/dL] 0.7 mg/dL (03/18/2013:30:00) eGFR 98 mL/min/1.73m2 1 *NA* (03/18/2013:30:00) BUN [7-22 mg/dL] 16 mg/dL (03/18/2013:30:00) Glucose Lvl [70-99 mg/dL] 98 mg/dL 2 (03/18/2013:30:00) Calcium Lvl [8.5-10.5 mg/dL] 9.4 mg/dL (03/18/2013:30:00) 1Result Comment: The eGFR is calculated using [...] values reflect the clinical guidelines of the [place] [employer]. HEMATOLOGY Most recent to oldest [Reference Range]: 1 WBC [3.7-10.4 K/CMM] 6.5 K/CMM (03/18/2013:30:00) RBC [4.20-5.40 M/CMM] 4.15 M/CMM *LOW* (03/18/2013:30:00) Hgb [12.0-16.0 g/dL] 13.2 g/dL (03/18/2013:30:00) Hct [36.0-48.0 %] 37.9 % (03/18/2013:30:00) MCV [81.0-99.0 fL] 91.4 fL (03/18/2013 11:30:00) MCH [27.0-31.0 pg] 31.7 pg *HI* (03/18/2013:30:00) MCHC [32.0-36.0 g/dL] 34.7 g/dL (03/18/2013 11:30:00) RDW [11.5-14.5 %] 13.1 % (03/18/2013:30:00) Platelet [133-450 K/CMM] 269 K/CMM (03/18/2013 11:30:00) MPV [7.4-10.4 fL] 8.8 fL (03/18/2013:30:00) Segs [45.0-75.0 %] 68.2 % (03/18/2013:30:00) Lymphocytes [20.0-40.0 %] 23.7 % (03/18/2013 11:30:00) Monocytes [2.0-12.0 %] 5.4 % (03/18/2013 11:30:00) Eosinophils [0.0-4.0 %] 2.4 % (03/18/2013:30:00) Basophils [0.0-1.0 %] 0.3 % (03/18/2013:30:00) Segs-Bands # [1.5-8.1 K/CMM] 4.4 K/CMM (03/18/2013:30:00) Lymphocytes # [1.0-5.5 K/CMM] 1.5 K/CMM (03/18/2013 11:30:00) Monocytes # [0.0-0.8 K/CMM] 0.4 K/CMM (03/18/2013 11:30:00) Eosinophils # [0.0-0.5 K/CMM] 0.2 K/CMM (03/18/2013 11:30:00) PT [12.0-14.7 seconds] 12.0 seconds (03/18/2013 11:30:00) INR [0.85-1.17] 0.89 3 (03/18/2013 11:30:00) PTT [22.9-35.8 seconds] 33.3 seconds 4 (03/18/2013 11:30:00) 3Interpretive Data: RECOMMENDED RANGES FOR PROTIME INR: 2.0-3.0 for most medical and surgical thromboembolic states. 2.5-3.5 for artificial heart valves and recurrent embolism. INR SHOULD BE USED ONLY FOR PATIENTS ON STABLE ANTICOAGULANT THERAPY. 4Interpretive Data: Heparin Therapeutic Range: 57 - 92 Seconds Procedures Procedures Date Related Diagnosis Hysterectomy 03/18/1991 00:00:00
[2018-02-06 15:40] VITALS: BP 138/60
--- NOTE | 2018-02-06 15:42 | Operative Report ---
DATE OF PROCEDURE: February 06, 2018 PREOPERATIVE DIAGNOSES 1. Chronic cystitis. 2. Hematuria. 3. Overactive bladder. 4. Urge incontinence. POSTOPERATIVE DIAGNOSES 1. Chronic cystitis. 2. Hematuria. 3. Overactive bladder. 4. Urge incontinence. OPERATION PERFORMED: 1. Cystogram. 2. Cystoscopy and bilateral retrograde pyelograms. MUSIC SPECIALIST: Dr. Elia Cortez. ANESTHESIA: General. INDICATIONS: Ms. Rolle is a 62-year-old female who presented with a chief complaint of recurrent urinary tract infections. She also has the diagnosis of overactive bladder and is on oxybutynin XL daily. DETAILS OF PROCEDURE: This patient was placed on the table in the lithotomy position and was prepped and draped in a sterile manner after satisfactory anesthesia. Cystogram contrast material was instilled in the bladder by and the cystogram showed normal bladder control. There was no evidence of reflux. A 23-Emirati cystoscope was used and cystourethroscopy was performed and it was noted that the urethra was normal. Cystoscopy was then performed using both right angle and Foroblique lens and it was noted that the bladder mucosa showed evidence of chronic cystitis with areas of hemorrhagic cystitis. There was no gross tumor. Both urethral orifices were seen and were in normal position, configuration efflux. The bladder wall was normal. Right retrograde pyelogram was then performed using a #8 ball tipped urethral catheter, inserted at the right ureteral orifice. Five mL of contrast material was injected. The retrograde performed was normal. Left retrograde pyelogram was performed similarly and was normal. The bladder was drained and cystoscope removed, and the patient taken to the recovery room in satisfactory condition. Plans for this lady is to be placed on Macrodantin 50 mg one 3 times a day x 2 weeks, and then one every night for 6 weeks. Ultracet tablet one every 6 to 8 hours p.r.n. and was given 15. She is to return to the office in one month. Job#: [id number]
== END | disposition home or self-care (01) ==
LOC: OR 10:28
PROVIDERS: ATTEND Specialist
DX: N32.81 Overactive bladder (principal); N30.21 Other chronic cystitis with hematuria; N39.41 Urge incontinence; I10 Essential (primary) hypertension; K21.9 Gastro-esophageal reflux disease without esophagitis; R00.1 Bradycardia, unspecified; F41.9 Anxiety disorder, unspecified; Z88.2 Allergy status to sulfonamides
CPT/HCPCS: 52005; 74420; 93005; C1758; J1100; J1956; J2001; J2250; J2405; J2704; Q9958